=== PATIENT | male | born 1940 | race Caucasian/White ===

== ENCOUNTER 2017-05-06 19:48 | Emergency (ER) | payer OTHER, MEDICARE ==
[2017-05-06 21:13] LABS: CHLORIDE,CL 103 mmol/L (98-107); SODIUM,NA 141 mmol/L (136-145)
--- NOTE | 2017-05-06 22:47 | EDM.PDOC ---
ED HPI GENERAL MEDICAL PROBLEM - General Chief Complaint: Chest Pain Stated Complaint: palpitations, ? fast heart rate Time Seen by Provider: 05/06/17 20:09 Source of Information: Reports: Patient History Limitations: Reports: No Limitations - History of Present Illness INITIAL COMMENTS - FREE TEXT/NARRATIVE: Presents to ER with complaints of palpitations. Denies any chest pain. Pt. states that he is recovering from an URI. Pt. states that he has a history of palpitation and CAD. He underwent a 4 vessel CABG in 2013. He states that today, he felt his pulse because he thought it felt fast, but thought if felt to be approx. 40 BPM. Pt. states that the symptoms resolved before arriving to ER, and states that he has issues with peripheral neuropathy, so he has issues feeling pulses. He presented to ER for a pulse check, but was encouraged to be seen in ER for EKG and lab. Onset: Today Location: Reports: Chest Quality: Reports: Other (palpitations) - Related Data Allergies Allergy/AdvReac Type Severity Reaction Status Date / Time No Known Allergies Allergy Verified 05/06/17 20:25 Home Meds: Home Meds Finasteride 5 mg PO DAILY 05/06/17 [History] Insulin Aspart [NovoLOG] 10 units SQ TID 05/06/17 [History] Insulin Glarg,Human.Rec.Analog [LantUS Solostar] 48 units SQ BEDTIME 05/06/17 [ History] Lisinopril 40 mg PO DAILY 05/06/17 [History] Omeprazole Magnesium [Prilosec Otc] 20 mg PO DAILY 05/06/17 [History] Simvastatin [Zocor] 20 mg PO BEDTIME 05/06/17 [History] Tamsulosin HCl 0.4 mg PO DAILY 05/06/17 [History] amLODIPine [Norvasc] 5 mg PO DAILY 05/06/17 [History] Past Medical History Cardiovascular History: Reports: Bypass, CAD, High Cholesterol, Hypertension Gastrointestinal History: Reports: GERD Genitourinary History: Reports: Prostate Disorder Endocrine/Metabolic History: Reports: Diabetes, Type I - Past Surgical History Cardiovascular Surgical History: Reports: Coronary Artery Bypass ED ROS GENERAL - Review of Systems Review Of Systems: See Below Constitutional: Reports: No Symptoms HEENT: Reports: No Symptoms Respiratory: Reports: No Symptoms Cardiovascular: Reports: Palpitations. Denies: Chest Pain, Claudication, Dyspnea on Exertion, Edema, Lightheadedness, Orthopnea, PND Endocrine: Reports: No Symptoms GI/Abdominal: Reports: No Symptoms : Reports: No Symptoms Musculoskeletal: Reports: No Symptoms Skin: Reports: No Symptoms Neurological: Reports: No Symptoms Psychiatric: Reports: No Symptoms Hematologic/Lymphatic: Reports: No Symptoms Immunologic: Reports: No Symptoms ED EXAM, GENERAL - Physical Exam Exam: See Below Exam Limited By: No Limitations General Appearance: Alert, WD/WN, No Apparent Distress Throat/Mouth: Normal Inspection, Normal Lips, Normal Teeth, Normal Gums, Normal Oropharynx, Normal Voice, No Airway Compromise Head: Atraumatic, Normocephalic Neck: Lymphadenopathy (L), Lymphadenopathy (R) Respiratory/Chest: No Respiratory Distress, Lungs Clear, Normal Breath Sounds, No Accessory Muscle Use, Chest Non-Tender Cardiovascular: Normal Peripheral Pulses, Regular Rate, Rhythm, No Edema, No Gallop, No JVD, No Murmur, No Rub GI/Abdominal: Normal Bowel Sounds, Soft, Non-Tender, No Organomegaly, No Distention, No Abnormal Bruit, No Mass (Male) Exam: Deferred Rectal (Males) Exam: Deferred Back Exam: Normal Inspection, Full Range of Motion, NT Extremities: Normal Inspection, Normal Range of Motion, Non-Tender, Normal Capillary Refill, No Pedal Edema Neurological: Alert, Oriented, CN II-XII Intact, Normal Cognition, Normal Gait, Normal Reflexes, No Motor/Sensory Deficits Psychiatric: Normal Affect, Normal Mood Skin Exam: Warm, Dry, Intact, Normal Color, No Rash Lymphatic: Adenopathy (lyphadenopathy to cervical and inguinal lymph nodes, 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.) Course - Vital Signs Last Recorded V/S: Last Vital Signs Temp 36.3 C 05/06/17 19:48 Pulse 71 05/06/17 19:48 Resp 14 05/06/17 21:04 BP 137/75 05/06/17 21:04 Pulse Ox 95 05/06/17 21:04 - Orders/Labs/Meds Orders: Active Orders 24 hr Category Date Time Status EKG Documentation Completion [RC] STAT Care 05/06/17 20:05 Ordered Labs: Laboratory Tests 05/06/17 05/06/17 05/06/17 Range/Units 20:43 20:43 20:43 WBC 17.0 H (4.0-10.0) x10^3/uL RBC 4.48 L (4.5-6.0) x10^6/uL Hgb 13.3 L (14.0-18.0) g/dL Hct 40.1 (40.0-52.0) % MCV 89.5 (78.0-93.0) fL MCH 29.7 (26.0-32.0) pg MCHC 33.2 (32.0-36.0) g/dL RDW Coeff of Max 13.1 (10.0-15.0) % Plt Count 209 (130-400) x10^3/uL Add Manual Diff Yes Neutrophils % (Manual) 17 L (50-80) % Lymphocytes % (Manual) 8 L (25-50) % Atypical Lymphs % 67 H (0) % Monocytes % (Manual) 7 (2-11) % Eosinophils % (Manual) 1 (0-4) % Platelet Estimate Adequate PT 9.9 (9.8-11.8) SEC INR 0.9 L (2.0-3.5) Sodium 141 (136-145) mmol/L Potassium 4.4 (3.5-5.1) mmol/L Chloride 103 (98-107) mmol/L Carbon Dioxide 30 (21-32) mmol/L BUN 12 (7-18) mg/dL Creatinine 0.8 (0.70-1.30) mg/dL Est Cr Clr Drug Dosing 76.10 mL/min Estimated GFR (MDRD) > 60 Glucose 157 H (74-106) mg/dL Calcium 8.8 (8.5-10.1) mg/dL Corrected Calcium 9.36 (8.5-10.1) mg/dL Total Bilirubin 0.3 (0.2-1.0) mg/dL AST 15 (15-37) U/L ALT 18 (16-63) U/L Alkaline Phosphatase 122 H (46-116) U/L Troponin I < 0.017 (<=0.056) ng/mL Total Protein 6.5 (6.4-8.2) g/dL Albumin 3.3 L (3.4-5.0) g/dL Globulin 3.2 Albumin/Globulin Ratio 1.03 Departure - Departure Time of Disposition: 21:15 Disposition: Home, Self-Care 01 Condition: Good Clinical Impression: Palpitations Referrals: Ashley Sales PA-C [Primary Care Provider] - Forms: ED Department Discharge Additional Instructions: Return to ER if you have any palpitations, chest pain, or shortness of breath. Follow-up in clinic for recheck of labs in 2 weeks. - My Orders Last 24 Hours: My Active Orders 05/06/17 20:05 EKG Documentation Completion [RC] STAT - Assessment/Plan Last 24 Hours: My Active Orders 05/06/17 20:05 EKG Documentation Completion [RC] STAT
== END 2017-05-06 21:36 | disposition home or self-care (01) ==
LOC: VM.ED 19:48
DX: R00.2 Palpitations (principal); E78.00 Pure hypercholesterolemia, unspecified; I10 Essential (primary) hypertension; E10.9 Type 1 diabetes mellitus without complications; Z79.4 Long term (current) use of insulin; Z79.899 Other long term (current) drug therapy
CPT/HCPCS: 36415; 80053; 84484; 85025; 85610; 93005; 99284-GF; 99285

== ENCOUNTER 2017-07-28 18:07 | Emergency (ER) | payer OTHER, MEDICARE ==
[2017-07-28] MEDS ORDERED: Sodium Chloride 0.9% 10 ML Syringe FLUSH PRN (18:42)
[2017-07-28] MEDS ORDERED: Adenosine 6 MG/2 ML SDV IVPUSH ONE (18:43)
[2017-07-28] MEDS ORDERED: Lactated Ringers 1,000 ML IV SCH (18:45)
--- NOTE | 2017-07-28 19:18 | EDM.PDOC ---
<Andres Mccray W - Last Filed: 07/28/17 19:09> ED HPI GENERAL MEDICAL PROBLEM - General Chief Complaint: Cardiovascular Problem Stated Complaint: palpitations/tachycardia Time Seen by Provider: 07/28/17 18:20 Source of Information: Reports: Patient History Limitations: Reports: No Limitations - History of Present Illness INITIAL COMMENTS - FREE TEXT/NARRATIVE: Pt. presents to ER with complaints of a 4 hour history of racing heart. Pt. states that this started at approx. 14:30 this afternoon. Pt. came to the ER on 07/04 with palpitations but was in a sinus rhythm on arrival. Pt. was set up for a Holter study which me is finished with. He had some episodes of palpitations during the holter study but [facility]. Pt. states that he is somewhat lightheaded but denies any chest pain. He states that he has been taking his heart rate with his blood pressure machine, and his heart rate has been between 155-175. Pt. has a history of CABG and has not had any issues with tachycardia since right after the surgery. He states that these issues with palpitations have only been happening over the past several months. Onset: Today Onset Date: 07/28/17 Onset Time: 14:30 Duration: Constant, Intermittent (intermittent initially) Associated Symptoms: Denies: Confusion, Chest Pain, Nausea/Vomiting, Shortness of Breath, Syncope, Weakness - Related Data Allergies Allergy/AdvReac Type Severity Reaction Status Date / Time No Known Allergies Allergy Verified 07/28/17 19:02 Home Meds: Home Meds Finasteride 5 mg PO DAILY 05/06/17 [History] Insulin Aspart [NovoLOG] 10 units SQ TID 05/06/17 [History] Insulin Glarg,Human.Rec.Analog [LantUS Solostar] 48 units SQ BEDTIME 05/06/17 [ History] Lisinopril 40 mg PO DAILY 05/06/17 [History] Omeprazole Magnesium [Prilosec Otc] 20 mg PO DAILY 05/06/17 [History] Simvastatin [Zocor] 20 mg PO BEDTIME 05/06/17 [History] Tamsulosin HCl 0.4 mg PO DAILY 05/06/17 [History] amLODIPine [Norvasc] 5 mg PO DAILY 05/06/17 [History] Metoprolol Tartrate [Lopressor] 12.5 mg PO Q12HR 7 Days #14 tab 07/28/17 [Rx] Past Medical History Cardiovascular History: Reports: Bypass, CAD, High Cholesterol, Hypertension Gastrointestinal History: Reports: GERD Genitourinary History: Reports: Prostate Disorder Endocrine/Metabolic History: Reports: Diabetes, Type I - Past Surgical History Cardiovascular Surgical History: Reports: Coronary Artery Bypass Social & Family History - Tobacco Use Smoking Status *Q: Unknown Ever Smoked ED ROS GENERAL - Review of Systems Review Of Systems: See Below Constitutional: Reports: No Symptoms. Denies: Fever, Chills, Malaise, Weakness , Fatigue, Diaphoresis HEENT: Reports: No Symptoms Respiratory: Reports: No Symptoms. Denies: Shortness of Breath Cardiovascular: Reports: Lightheadedness, Palpitations. Denies: Chest Pain, Orthopnea, PND, Syncope Endocrine: Reports: No Symptoms GI/Abdominal: Reports: No Symptoms. Denies: Abdominal Pain, Bloody Stool, Diarrhea, Difficulty Swallowing, Hematemesis, Hematochezia, Nausea, Vomiting : Reports: No Symptoms Musculoskeletal: Reports: No Symptoms Skin: Reports: No Symptoms Neurological: Reports: No Symptoms Psychiatric: Reports: No Symptoms Hematologic/Lymphatic: Reports: No Symptoms Immunologic: Reports: No Symptoms ED EXAM, GENERAL - Physical Exam Exam: See Below Exam Limited By: No Limitations General Appearance: Alert, WD/WN, No Apparent Distress Eye Exam: Bilateral Eye: EOMI, Normal Fundi, Normal Inspection, PERRL Nose: Normal Inspection, Normal Mucosa, No Blood Throat/Mouth: Normal Inspection, Normal Lips, Normal Teeth, Normal Gums, Normal Oropharynx, Normal Voice, No Airway Compromise Head: Atraumatic, Normocephalic Neck: Normal Inspection, Supple, Non-Tender, Full Range of Motion Respiratory/Chest: No Respiratory Distress, Lungs Clear, Normal Breath Sounds, No Accessory Muscle Use, Chest Non-Tender Cardiovascular: Normal Peripheral Pulses, No Edema, No Murmur, No Rub, Tachycardia, Other (regular rhythm) Peripheral Pulses: 3+: Radial (L), Radial (R) GI/Abdominal: Soft, Non-Tender, No Organomegaly, No Distention, No Mass (Male) Exam: Deferred Rectal (Males) Exam: Deferred Extremities: Normal Inspection, Normal Range of Motion, Non-Tender, No Pedal Edema, Normal Capillary Refill Neurological: Alert, Oriented, CN II-XII Intact, Normal Cognition, Normal Gait, Normal Reflexes, No Motor/Sensory Deficits Psychiatric: Normal Affect, Normal Mood Skin Exam: Warm, Dry, Intact, Normal Color, No Rash EKG INTERPRETATION EKG Date: 07/28/17 Time: 18:19 Rhythm: Other (SVT) EKG Interpretation Comments: Initial rhythm SVT at 160-180. After administration of adenosine 6mg IV, pt. converted to a sinus rhythm at 75. Course - Vital Signs Last Recorded V/S: Last Vital Signs Temp 35.6 C 07/28/17 18:10 Pulse 175 H 07/28/17 18:10 Resp 18 07/28/17 18:10 BP 148/99 H 07/28/17 18:10 Pulse Ox 97 07/28/17 18:10 - Orders/Labs/Meds Orders: Active Orders 24 hr Category Date Time Status EKG Documentation Completion [RC] STAT Care 07/28/17 18:42 Active EKG Documentation Completion [RC] STAT Care 07/28/17 19:28 Active Chest 1V Frontal [CR] Stat Exams 07/28/17 19:08 Taken LACTIC ACID [CHEM] Stat Lab 07/28/17 19:23 Received Lactated Ringers [Ringers, Lactated] 1,000 ml Med 07/28/17 18:45 Active IV ASDIRECTED Sodium Chloride 0.9% [Saline Flush] Med 07/28/17 18:42 Active 10 ml FLUSH ASDIRECTED PRN Peripheral IV Insertion Adult [OM.PC] Routine Oth 07/28/17 18:43 Ordered Medication Orders Lactated Ringer's (Ringers, Lactated) 1,000 mls @ 500 mls/hr IV ASDIRECTED [facility] Last Admin: 07/28/17 19:09 Dose: 500 mls/hr Sodium Chloride (Saline Flush) 10 ml FLUSH ASDIRECTED PRN PRN Reason: Keep Vein Open Labs: Laboratory Tests 07/28/17 07/28/17 07/28/17 Range/Units 19:23 19:23 19:23 WBC 19.1 H (4.0-10.0) x10^3/uL RBC 4.61 (4.5-6.0) x10^6/uL Hgb 14.1 (14.0-18.0) g/dL Hct 42.3 (40.0-52.0) % MCV 91.8 (78.0-93.0) fL MCH 30.6 (26.0-32.0) pg MCHC 33.3 (32.0-36.0) g/dL RDW Coeff of Max 14.8 (10.0-15.0) % Plt Count 232 (130-400) x10^3/uL Add Manual Diff Yes Neutrophils % (Manual) 17 L (50-80) % Lymphocytes % (Manual) 70 H (25-50) % Monocytes % (Manual) 11 (2-11) % Eosinophils % (Manual) 2 (0-4) % Platelet Estimate Adequate PT 10.2 (9.8-11.8) SEC INR 0.9 L (2.0-3.5) Sodium 140 (136-145) mmol/L Potassium 4.3 (3.5-5.1) mmol/L Chloride 104 (98-107) mmol/L Carbon Dioxide 27 (21-32) mmol/L BUN 16 (7-18) mg/dL Creatinine 0.8 (0.70-1.30) mg/dL Est Cr Clr Drug Dosing TNP Estimated GFR (MDRD) > 60 Glucose 137 H (74-106) mg/dL Calcium 9.1 (8.5-10.1) mg/dL Corrected Calcium 9.50 (8.5-10.1) mg/dL Phosphorus 3.5 (2.6-4.7) mg/dL Magnesium 2.0 (1.8-2.4) mg/dL Total Bilirubin 0.3 (0.2-1.0) mg/dL AST 15 (15-37) U/L ALT 18 (16-63) U/L Alkaline Phosphatase 107 (46-116) U/L Troponin I < 0.017 (<=0.056) ng/mL C-Reactive Protein < 0.2 (<=0.9) mg/dL NT-Pro-B Natriuret Pep 230 (<=450) pg/mL Total Protein 7.6 (6.4-8.2) g/dL Albumin 3.5 (3.4-5.0) g/dL Globulin 4.1 Albumin/Globulin Ratio 0.85 TSH, Ultra Sensitive 2.021 (0.358-3.74) uIU/mL Meds: Medications Generic Name Dose Route Start Last Admin Trade Name Freq PRN Reason Stop Dose Admin Lactated Ringer's 1,000 mls @ 500 mls/hr 07/28/17 18:45 07/28/17 19:09 Ringers, Lactated IV 500 mls/hr ASDIRECTED HOLLY Administration Sodium Chloride 10 ml 07/28/17 18:42 Saline Flush FLUSH ASDIRECTED PRN Keep Vein Open Discontinued Medications Generic Name Dose Route Start Last Admin Trade Name Freq PRN Reason Stop Dose Admin Adenosine 6 mg 07/28/17 18:43 07/28/17 18:50 Adenocard IVPUSH 07/28/17 18:44 6 mg NOW ONE Administration Departure - Departure Disposition: Home, Self-Care 01 Clinical Impression: SVT (supraventricular tachycardia) - Discharge Information Prescriptions: Metoprolol Tartrate [Lopressor] 12.5 mg PO Q12HR 7 Days #14 tab Instructions: Supraventricular Tachycardia, Adult Referrals: Ashley Sales PA-C [Primary Care Provider] - Forms: ED Department Discharge Additional Instructions: 1. Stay well hydrated and rest 2. Take new heart pill twice a day 3. Report to your Primary Care Provider at your next appointment 4. Call us with any questions - My Orders Last 24 Hours: My Active Orders 07/28/17 19:23 LACTIC ACID [CHEM] Stat - Assessment/Plan Last 24 Hours: My Active Orders 07/28/17 19:23 LACTIC ACID [CHEM] Stat <Calin Claros - Last Filed: 07/28/17 20:10> Departure - Departure Time of Disposition: 20:07 Condition: Good - Problem List Review Problem List Initiated/Reviewed/Updated: Yes - Assessment/Plan Assessment:: SVT Plan: No cardiology available to contact at the [facility]. Therefore, will start patient on a low dose B-perry until he can get seen by his PCP August 11, 2017. Patient agrees with POC and wishes to proceed.
[2017-07-28 20:03] LABS: CHLORIDE,CL 104 mmol/L (98-107); SODIUM,NA 140 mmol/L (136-145)
[2017-07-28] MEDS ORDERED: Metoprolol Tartrate 25 MG Tab PO ONE (20:08)
[2017-07-28 22:01] VITALS: BP 155/91
== END 2017-07-28 20:26 | disposition home or self-care (01) ==
LOC: VM.ED 18:07
DX: I47.1 Supraventricular tachycardia (principal); E78.00 Pure hypercholesterolemia, unspecified; I10 Essential (primary) hypertension; E10.9 Type 1 diabetes mellitus without complications; I25.10 Atherosclerotic heart disease of native coronary artery without angina pectoris; Z79.899 Other long term (current) drug therapy
CPT/HCPCS: 36415; 71045; 80053; 83605; 83735; 83880; 84100; 84443; 84484; 85025; 85610; 86140; 93005; 93010; 96361; 96374; 99284-GF; 99285; A9270-GY; J0153; J7120

== ENCOUNTER 2017-07-28 22:49 | Observation (INO) | payer OTHER, MEDICARE ==
[2017-07-28] MEDS ORDERED: Sodium Chloride 0.9% 10 ML Syringe FLUSH PRN (23:01)
[2017-07-28] MEDS ORDERED: Ondansetron 4 MG Tab.DIS PO PRN (23:01)
[2017-07-28] MEDS ORDERED: Acetaminophen 325 MG Tab PO PRN (23:01)
[2017-07-28] MEDS ORDERED: Lactated Ringers 1,000 ML IV SCH (23:15)
[2017-07-28] MEDS ORDERED: Diltiazem 100 MG in Sodium Chloride 0.9% 100 ML IV SCH (23:45)
--- NOTE | 2017-07-28 23:52 | PCM.HP ---
H&P History of Present Illness - General Date of Service: 07/28/17 Admit Problem/Dx: Admission Diagnosis/Problem Admission Diagnosis/Problem Supraventricular tachycardia Source of Information: Patient, Old Records, RN, RN Notes Reviewed History Limitations: Reports: No Limitations - History of Present Illness Initial Comments - Free Text/Narative: Patient presents to the hospital as a direct admission for SVT following an earlier ER visit at this facility. Patient was seen earlier in the ED for SVT. He was given adenosine and converted to NSR with a rate in the 90's. Patient was given one dose of Metoprolol 12.5 mg in the ED and discharge home with a prescription. This patient is seen by [facility] [place]. [facility] and recommendation was made to follow up with his PCP. Patient called the ED at [facility] around 10pm this evening stating his HR was in the 170's. Another call was placed to the [facility] and recommended patient be admitted here for stabilization before being sent to the [facility]. Patient apparently had this same issue April 2017. He was to have a Holter monitor placed and rechecked by the [facility]. It is unclear is this ever happened. Patient denies any chest pain or SOB. No abdominal pain. Patient denies any N/V/ D. Overall, he states he feels good. No focal neurological complaints. Onset of Symptoms: Reports: Unknown/Unsure - Related Data Allergies/Adverse Reactions: Allergies Allergy/AdvReac Type Severity Reaction Status Date / Time No Known Allergies Allergy Verified 07/28/17 19:02 Home Medications: Home Meds Finasteride 5 mg PO DAILY 05/06/17 [History] Insulin Aspart [NovoLOG] 10 units SQ TID 05/06/17 [History] Insulin Glarg,Human.Rec.Analog [LantUS Solostar] 48 units SQ BEDTIME 05/06/17 [ History] Lisinopril 40 mg PO DAILY 05/06/17 [History] Omeprazole Magnesium [Prilosec Otc] 20 mg PO DAILY 05/06/17 [History] Simvastatin [Zocor] 20 mg PO BEDTIME 05/06/17 [History] Tamsulosin HCl 0.4 mg PO DAILY 05/06/17 [History] amLODIPine [Norvasc] 5 mg PO DAILY 05/06/17 [History] Metoprolol Tartrate [Lopressor] 12.5 mg PO Q12HR 7 Days #14 tab 07/28/17 [Rx] Past Medical History Cardiovascular History: Reports: Bypass, CAD, High Cholesterol, Hypertension Gastrointestinal History: Reports: GERD Genitourinary History: Reports: Prostate Disorder Endocrine/Metabolic History: Reports: Diabetes, Type I - Past Surgical History Cardiovascular Surgical History: Reports: Coronary Artery Bypass Social & Family History - Tobacco Use Smoking Status *Q: Unknown Ever Smoked H&P Review of Systems - Review of Systems: Review Of Systems: See Below General: Denies: Fever, Chills, Weakness Pulmonary: Denies: Shortness of Breath, Cough Cardiovascular: Reports: Palpitations. Denies: Chest Pain, Lightheadedness Gastrointestinal: Denies: Abdominal Pain, Nausea, Vomiting Skin: Reports: No Symptoms Neurological: Reports: No Symptoms. Denies: Dizziness, Headache Exam - Exam Exam: See Below - Exam General: Alert, Oriented, Cooperative Lungs: Clear to Auscultation, Normal Respiratory Effort Cardiovascular: Regular Rhythm, Normal S1, Normal S2, Tachycardia GI/Abdominal Exam: Normal Bowel Sounds, Soft, Non-Tender Extremities: Normal Inspection Peripheral Pulses: 2+: Radial (L), Radial (R) Skin: Warm, Dry, Intact Neuro Extensive - Mental Status: Alert, Oriented x3 EKG INTERPRETATION EKG Date: 07/28/17 Time: 23:50 Rhythm: Other Rate (Beats/Min): 160 [place]: Normal P-Wave: Present QRS: Normal ST-T: Depressed QT: Normal ME/PQ Interval: 0.78 Comparison: NA - No Prior EKG EKG Interpretation Comments: 1. Sinus Tachycardia with short ME interval 2. Septal [place], probably old 3. ST deviation and moderate T-wave abnormality, consider inferior ischemia *Q Meaningful Use (ADM) - VTE *Q VTE Mechanical Contraindications *Q: At Risk for Falls - Problem List (1) SVT (supraventricular tachycardia) SNOMED Code(s): 0905200 ICD Code: I47.1 - SUPRAVENTRICULAR TACHYCARDIA Status: Acute Priority: High Current Visit: Yes Onset Date: ~07/28/17 (2) CLL (chronic lymphocytic leukemia) SNOMED Code(s): 03623437 ICD Code: C91.90 - LYMPHOID LEUKEMIA, UNSPECIFIED NOT HAVING ACHIEVED REMISSION Status: Chronic Priority: Low Current Visit: No (3) S/P CABG x 4 SNOMED Code(s): 015656545, 704856832 ICD Code: Z95.1 - PRESENCE OF AORTOCORONARY BYPASS GRAFT Status: Chronic Priority: Low Current Visit: No (4) Diabetes SNOMED Code(s): 66367478 ICD Code: E11.9 - TYPE 2 DIABETES MELLITUS WITHOUT COMPLICATIONS Status: Acute Current Visit: Yes Qualifiers: Diabetes mellitus type: type 1 Diabetes mellitus complication status: without complication Qualified Code(s): E10.9 - Type 1 diabetes mellitus without complications (5) Essential hypertension SNOMED Code(s): 85516239 ICD Code: I10 - ESSENTIAL (PRIMARY) HYPERTENSION Status: Chronic Priority : Low Current Visit: No Problem List Initiated/Reviewed/Updated: Yes Orders Last 24hrs: Active Orders 24 hr Category Date Time Status Patient Status [ADT] Routine ADT 07/28/17 23:01 Active Ambulate [RC] ASDIRECTED Care 07/28/17 23:01 Active Cardiac Monitoring [RC] 06,10,14,18,22,02 Care 07/28/17 23:01 Active EKG 12 Lead [EKG Documentation Completion] [RC] STAT Care 07/28/17 23:06 Active Height and Weight [RC] UPON Care 07/28/17 23:01 Active Intake and Output [RC] QSHIFT Care 07/28/17 23:01 Active May Shower [RC] ASDIRECTED Care 07/28/17 23:01 Active Oxygen Therapy [RC] .PRN Care 07/28/17 23:01 Active VTE/DVT Education [RC] .PRN Care 07/28/17 23:01 Active Vital Signs [RC] 06,10,14,18,22,02 Care 07/28/17 23:01 Active Consult to Case Management [CONS] Routine Cons 07/28/17 23:01 Active [employer] [place] Diet [DIET] Diet 07/28/17 Breakfast Active BASIC METABOLIC PANEL,BMP [CHEM] Routine Lab 07/29/17 05:11 Ordered CBC WITH AUTO DIFF [HEME] Routine Lab 07/29/17 05:11 Ordered MAGNESIUM [CHEM] Routine Lab 07/29/17 05:11 Ordered Acetaminophen [Tylenol] Med 07/28/17 23:01 Active 650 mg PO Q4H PRN Finasteride [Proscar] Med 07/29/17 08:00 Ordered 5 mg PO DAILY Insulin Aspart [NovoLOG] Med 07/29/17 08:00 Ordered 10 unit SUBCUT TID Insulin Glarg,Human.Rec.Analog Med 07/29/17 20:00 Ordered 48 units SQ BEDTIME Lactated Ringers [Ringers, Lactated] 1,000 ml Med 07/28/17 23:15 Active IV ASDIRECTED Lisinopril [Lisinopril] Med 07/29/17 08:00 Ordered 40 mg PO DAILY Omeprazole Magnesium [Prilosec Otc] Med 07/29/17 08:00 Ordered 20 mg PO DAILY Ondansetron [Zofran ODT] Med 07/28/17 23:01 Active 4 mg PO Q6H PRN Simvastatin [Zocor] Med 07/29/17 20:00 Ordered 20 mg PO BEDTIME Sodium Chloride 0.9% [Saline Flush] Med 07/28/17 23:01 Active 10 ml FLUSH ASDIRECTED PRN Tamsulosin [Flomax] Med 07/29/17 08:00 Ordered 0.4 mg PO DAILY amLODIPine [Norvasc] Med 07/29/17 08:00 Ordered 5 mg PO DAILY Antiembolic Hose [OM.PC] Per Unit Routine Oth 07/28/17 23:02 Ordered Peripheral IV Insertion Adult [OM.PC] Routine Oth 07/28/17 23:01 Ordered Resuscitation Status Routine Resus Stat 07/28/17 23:01 Ordered Medication Orders Acetaminophen (Tylenol) 650 mg PO Q4H PRN PRN Reason: Pain (Mild 1-3)/fever Amlodipine Besylate (Norvasc) 5 mg PO DAILY HOLLY Finasteride (Proscar) 5 mg PO DAILY HOLLY Lactated Ringer's (Ringers, Lactated) 1,000 mls @ 75 mls/hr IV ASDIRECTED HOLLY Insulin Aspart (Novolog) 10 unit SUBCUT TID HOLLY Non-Formulary Medication (Insulin Glarg,Human.Rec.Analog) 48 units SQ BEDTIME HOLLY Non-Formulary Medication (Lisinopril [Lisinopril]) 40 mg PO DAILY HOLLY Non-Formulary Medication (Omeprazole Magnesium [Prilosec Otc]) 20 mg PO DAILY HOLLY Ondansetron HCl (Zofran Odt) 4 mg PO Q6H PRN PRN Reason: nausea, able to take PO Simvastatin (Zocor) 20 mg PO BEDTIME HOLLY Sodium Chloride (Saline Flush) 10 ml FLUSH ASDIRECTED PRN PRN Reason: Keep Vein Open Tamsulosin HCl (Flomax) 0.4 mg PO DAILY HOLLY Assessment/Plan Comment:: 77 yo male patient with a past medical history of DM Type I, HTN, CLL, and 4 vessel CABG is admitted to the observation unit at [facility] for a diagnosis of SVT. Case was discussed with Dr. Sun, [facility]. Recommended the patient be admitted and stabilized here before any transfer, if needed. Patient will be given one bolus of 20 mg Cardizem and started on a Cardizem drip and titrate per protocol. Will continue home medications the same. Will eventually transition patient to PO CCB or BB once rhythm is stable. Accucheks TID with meals. Recheck blood work in AM. Patient wishes to be a full code. Patient will be transferred to the [facility] in [place] once stabilized, should the need arise. DVT prophylaxis with Lovenox and early ambulation. I anticipate patient will be admitted <48 hrs if rhythm in controlled on Cardizem drip and transitioned over to PO.
[2017-07-28] MEDS ORDERED: Diltiazem 25 MG/5 ML SDV IVPUSH ONE (23:56)
[2017-07-29 07:23] LABS: CHLORIDE,CL 106 mmol/L (98-107); SODIUM,NA 139 mmol/L (136-145)
[2017-07-29] MEDS: Insulin Aspart 100 Units/ML 3 ML Pen SUBCUT SCH ×2 (07:40→11:36)
[2017-07-29] MEDS ORDERED: Lisinopril 20 MG Tab PO SCH (08:00)
[2017-07-29] MEDS ORDERED: Omeprazole 20 MG Cap.CR PO SCH (08:00)
[2017-07-29] MEDS ORDERED: Finasteride 5 MG Tab PO SCH (08:00)
[2017-07-29] MEDS ORDERED: amLODIPine 5 MG Tab PO SCH (08:00)
[2017-07-29] MEDS ORDERED: Tamsulosin 0.4 MG Cap.ER PO SCH (08:00)
[2017-07-29] MEDS ORDERED: Diltiazem 180 MG Cap.CD PO ONE (10:13)
--- NOTE | 2017-07-29 10:18 | PCM.DCSUM1 ---
Discharge Summary - Hospital Course HPI Initial Comments: Patient presented to the hospital as a direct admission last night for SVT following an earlier ER visit at this facility yesterday. Patient was seen earlier in the ED for SVT. He was given adenosine and converted to NSR with a rate in the 90's. Patient was given one dose of Metoprolol 12.5 mg in the ED and discharge home with a prescription. This patient [facility] [place] to follow up with his PCP. Patient called the ED at [facility] around 10pm last night stating his HR was in the 170's. Another call was placed to the [facility] and recommended patient be admitted here for stabilization [facility]. Patient apparently had this same issue April 2017. He was to have a Holter monitor placed and rechecked by the [facility]. It is unclear is this ever happened. Patient denies any chest pain or SOB. No abdominal pain. Patient denies any N/V/ D. Overall, he states he feels good. No focal neurological complaints. Case was discussed with Dr. Sun, [facility] [place]. - Discharge Data Discharge Date: 07/29/17 Discharge Disposition: Home, Self-Care 01 Condition: Good - Discharge Diagnosis/Problem(s) (1) SVT (supraventricular tachycardia) SNOMED Code(s): 1757081 ICD Code: I47.1 - SUPRAVENTRICULAR TACHYCARDIA Status: Acute Priority: High Current Visit: Yes Onset Date: ~07/28/17 (2) CLL (chronic lymphocytic leukemia) SNOMED Code(s): 14399359 ICD Code: C91.90 - LYMPHOID LEUKEMIA, UNSPECIFIED NOT HAVING ACHIEVED REMISSION Status: Chronic Priority: Low Current Visit: No (3) S/P CABG x 4 SNOMED Code(s): 066999773, 446703060 ICD Code: Z95.1 - PRESENCE OF AORTOCORONARY BYPASS GRAFT Status: Chronic Priority: Low Current Visit: No (4) Diabetes SNOMED Code(s): 25144002 ICD Code: E11.9 - TYPE 2 DIABETES MELLITUS WITHOUT COMPLICATIONS Status: Acute Current Visit: Yes Qualifiers: Diabetes mellitus type: type 1 Diabetes mellitus complication status: without complication Qualified Code(s): E10.9 - Type 1 diabetes mellitus without complications (5) Essential hypertension SNOMED Code(s): 42450821 ICD Code: I10 - ESSENTIAL (PRIMARY) HYPERTENSION Status: Chronic Priority : Low Current Visit: No - Patient Summary/Data Operative Procedure(s) Performed: None Consults: Consultations 07/28/17 23:01 Consult to Case Management [CONS] Routine Labs Pending at D/C: None Recommended Follow-up Testing/Procedures: EKG with labs at next PCP appointment Planned Operative Procedure(s) after DC: None Hospital Course: Patient remained stable while admitted. No fevers. Blood pressure remained stable. Patient tolerated Cardiazem drip without any issues. Patient remained pain free. No chest Pain. No SOB. No orthostatics. - Patient Instructions Diet: Diabetic Diet Activity: No Strenuous Activities, Rest and Relax Today Driving: May Drive Today Showering/Bathing: May Shower Notify Provider of: Fever, Increased Pain, Nausea and/or Vomiting Other/Special Instructions: Increased heart rate or chest pain - Discharge Plan Prescriptions/Med Rec: Diltiazem HCl [Diltiazem 24Hr Cd] 1 cap PO DAILY 30 Days #30 cap.er.24h Home Medications: Home Meds Finasteride 5 mg PO DAILY 05/06/17 [History] Insulin Aspart [NovoLOG] 10 units SQ TID 05/06/17 [History] Insulin Glarg,Human.Rec.Analog [LantUS Solostar] 48 units SQ BEDTIME 05/06/17 [ History] Lisinopril 40 mg PO DAILY 05/06/17 [History] Omeprazole Magnesium [Prilosec Otc] 20 mg PO DAILY 05/06/17 [History] Simvastatin [Zocor] 20 mg PO BEDTIME 05/06/17 [History] Tamsulosin HCl 0.4 mg PO DAILY 05/06/17 [History] amLODIPine [Norvasc] 5 mg PO DAILY 05/06/17 [History] Acetaminophen/Diphenhydramine [Tylenol Pm Ex-Strength Caplet] 1 each PO BEDTIME PRN 07/29/17 [History] Diltiazem HCl [Diltiazem 24Hr Cd] 1 cap PO DAILY 30 Days #30 cap.er.24h [Rx] Patient Handouts: Supraventricular Tachycardia, Adult Referrals: Ashley Sales PA-C [Primary Care Provider] - (Follow up in one week at the [facility]) - Discharge Summary/Plan Comment DC Time >30 min.: No Discharge Summary/Plan Comment: Patient will be discharge home today as he is doing well and tolerated the Cardiazem. He will be started on 180 mg PO Cardiazem CD daily. Patient needs a follow up appointment with PCP in the next week for a hospital discharge recheck and to see how he is doing on his new medication. - General Info Date of Service: 07/29/17 Admission Dx/Problem (Free Text: Admission Diagnosis/Problem Admission Diagnosis/Problem Supraventricular tachycardia Subjective Update: Patient offers no specific complaints this morning. He states he is feeling good. No chest pain or palpitations over night. No SOB. No issues with BM's or urination. Tolerating diet ok. Functional Status: Reports: Pain Controlled, Tolerating Diet, Ambulating, Urinating Numeric/FACES Score: 0 - Review of Systems General: Denies: Fever, Weakness Pulmonary: Denies: Shortness of Breath, Sputum Cardiovascular: Denies: Chest Pain, Palpitations Gastrointestinal: Denies: Abdominal Pain, Nausea, Vomiting Skin: Reports: No Symptoms Neurological: Reports: No Symptoms. Denies: Dizziness, Headache - Patient Data Vitals - Most Recent: Last Vital Signs Temp 36.3 C 07/29/17 09:19 Pulse 72 07/29/17 09:26 Resp 16 07/29/17 09:19 BP 128/73 07/29/17 09:26 Pulse Ox 96 07/29/17 09:19 Weight - Most Recent: 78.471 kg I&O - Last 24 hours: Intake & Output 07/28/17 07/29/17 07/29/17 22:59 06:59 14:59 Intake Total 433 200 Output Total 200 200 Balance 233 0 Lab Results - Last 24 hrs: Laboratory Results - last 24 hr 07/29/17 07/29/17 07/29/17 Range/Units 00:41 06:32 06:57 WBC 18.1 H (4.0-10.0) x10^3/uL RBC 4.30 L (4.5-6.0) x10^6/uL Hgb 13.1 L (14.0-18.0) g/dL Hct 40.1 (40.0-52.0) % MCV 93.3 H (78.0-93.0) fL MCH 30.5 (26.0-32.0) pg MCHC 32.7 (32.0-36.0) g/dL RDW Coeff of Max 14.7 (10.0-15.0) % Plt Count 235 (130-400) x10^3/uL Add Manual Diff Yes Neutrophils % (Manual) 17 L (50-80) % Band Neutrophils % 4 (0-6) % Lymphocytes % (Manual) 75 H (25-50) % Monocytes % (Manual) 1 L (2-11) % Eosinophils % (Manual) 1 (0-4) % Metamyelocytes % 2 H (0) % Platelet Estimate Adequate Sodium (136-145) mmol/L Potassium (3.5-5.1) mmol/L Chloride (98-107) mmol/L Carbon Dioxide (21-32) mmol/L BUN (7-18) mg/dL Creatinine (0.70-1.30) mg/dL Est Cr Clr Drug Dosing mL/min Estimated GFR (MDRD) Glucose (74-106) mg/dL POC Glucose 128 H 148 H (74-106) mg/dL Calcium (8.5-10.1) mg/dL Magnesium (1.8-2.4) mg/dL 07/29/17 Range/Units 06:57 WBC (4.0-10.0) x10^3/uL RBC (4.5-6.0) x10^6/uL Hgb (14.0-18.0) g/dL Hct (40.0-52.0) % MCV (78.0-93.0) fL MCH (26.0-32.0) pg MCHC (32.0-36.0) g/dL RDW Coeff of Max (10.0-15.0) % Plt Count (130-400) x10^3/uL Add Manual Diff Neutrophils % (Manual) (50-80) % Band Neutrophils % (0-6) % Lymphocytes % (Manual) (25-50) % Monocytes % (Manual) (2-11) % Eosinophils % (Manual) (0-4) % Metamyelocytes % (0) % Platelet Estimate Sodium 139 (136-145) mmol/L Potassium 4.4 (3.5-5.1) mmol/L Chloride 106 (98-107) mmol/L Carbon Dioxide 24 (21-32) mmol/L BUN 18 (7-18) mg/dL Creatinine 0.8 (0.70-1.30) mg/dL Est Cr Clr Drug Dosing 76.10 mL/min Estimated GFR (MDRD) > 60 Glucose 190 H (74-106) mg/dL POC Glucose (74-106) mg/dL Calcium 8.5 (8.5-10.1) mg/dL Magnesium 1.9 (1.8-2.4) mg/dL Med Orders - Current: Current Medications Acetaminophen (Tylenol) 650 mg PO Q4H PRN PRN Reason: Pain (Mild 1-3)/fever Last Admin: 07/29/17 01:42 Dose: 650 mg Amlodipine Besylate (Norvasc) 5 mg PO DAILY [facility] Last Admin: 07/29/17 07:40 Dose: 5 mg Diltiazem HCl (Cardizem Cd) 180 mg PO ONETIME ONE Stop: 07/29/17 10:14 Finasteride (Proscar) 5 mg PO DAILY [facility] Last Admin: 07/29/17 07:39 Dose: 5 mg Lactated Ringer's (Ringers, Lactated) 1,000 mls @ 75 mls/hr IV ASDIRECTED [facility] Last Admin: 07/29/17 01:21 Dose: 75 mls/hr Insulin Aspart (Novolog) 10 unit SUBCUT TID [facility] Last Admin: 07/29/17 07:40 Dose: 10 units Insulin Detemir (Levemir) 24 unit SUBCUT BID [facility] Lisinopril (Prinivil) 40 mg PO DAILY [facility] Last Admin: 07/29/17 07:39 Dose: 40 mg Omeprazole (Omeprazole) 20 mg PO DAILY [facility] Last Admin: 07/29/17 07:39 Dose: 20 mg Ondansetron HCl (Zofran Odt) 4 mg PO Q6H PRN PRN Reason: nausea, able to take PO Simvastatin (Zocor) 20 mg PO BEDTIME [facility] Sodium Chloride (Saline Flush) 10 ml FLUSH ASDIRECTED PRN PRN Reason: Keep Vein Open Tamsulosin HCl (Flomax) 0.4 mg PO DAILY [facility] Last Admin: 07/29/17 07:39 Dose: 0.4 mg Discontinued Medications Diltiazem HCl (Diltiazem) 20 mg IVPUSH ONETIME ONE Stop: 07/28/17 23:57 Last Admin: 07/29/17 00:12 Dose: 20 mg Diltiazem HCl 100 mg/ Sodium (Chloride) 100 mls @ 5 mls/hr IV TITRATE [facility]; Protocol Last Admin: 07/29/17 01:23 Dose: 5 mg/hr, 5 mls/hr - Exam General: Reports: Alert, Oriented, Cooperative, No Acute Distress Lungs: Reports: Clear to Auscultation, Normal Respiratory Effort Cardiovascular: Reports: Regular Rate, Regular Rhythm GI/Abdominal Exam: Normal Bowel Sounds, Soft, Non-Tender Skin: Reports: Warm, Dry, Intact Neurological: Reports: No New Focal Deficit *Q Meaningful Use (DIS) - VTE *Q VTE Mechanical Contraindications *Q: At Risk for Falls
[2017-07-29 12:29] VITALS: BP 134/72
[2017-07-29] MEDS ORDERED: Simvastatin 20 MG Tab PO SCH (20:00)
[2017-07-30] MEDS ORDERED: Insulin Detemir 100 Units/ML 3 ML Pen SUBCUT SCH (08:00)
== END 2017-07-29 12:43 | disposition home or self-care (01) ==
LOC: VM.MS 22:50 → UNDOADMOB 22:50 → VM.MS 23:45 → UNDODISOB 07-29 12:43
PROVIDERS: ADMIT Nurse Practitioner Family; ATTEND Nurse Practitioner Family
DX: I47.1 Supraventricular tachycardia (principal); C91.90 Lymphoid leukemia, unspecified not having achieved remission; E10.9 Type 1 diabetes mellitus without complications; I10 Essential (primary) hypertension; I25.10 Atherosclerotic heart disease of native coronary artery without angina pectoris; E78.00 Pure hypercholesterolemia, unspecified; K21.9 Gastro-esophageal reflux disease without esophagitis; N42.9 Disorder of prostate, unspecified; Z95.1 Presence of aortocoronary bypass graft; Z79.899 Other long term (current) drug therapy; Z79.4 Long term (current) use of insulin
CPT/HCPCS: 36415; 80048; 82962; 83735; 85025; 93005; 94760; 96365; 96366; 96376; A9270-GY; G0378; J1815-GY; J3490; J7050; J7120

== ENCOUNTER 2017-07-30 23:40 | Emergency (ER) | payer OTHER, MEDICARE ==
[2017-07-30] MEDS ORDERED: Sodium Chloride 0.9% 10 ML Syringe FLUSH PRN (23:42)
[2017-07-30] MEDS ORDERED: Adenosine 6 MG/2 ML SDV IVPUSH ONE (23:43)
[2017-07-30] MEDS ORDERED: Lactated Ringers 1,000 ML IV SCH (23:45)
[2017-07-31] MEDS ORDERED: Diltiazem IR 60 MG Tab PO ONE (00:07)
[2017-07-31 00:47] LABS: CHLORIDE,CL 101 mmol/L (98-107); SODIUM,NA 135 mmol/L (136-145)
--- NOTE | 2017-07-31 06:20 | EDM.PDOC ---
ED HPI GENERAL MEDICAL PROBLEM - General Chief Complaint: Cardiovascular Problem Stated Complaint: tachycardia Time Seen by Provider: 07/30/17 23:40 Source of Information: Reports: Patient History Limitations: Reports: No Limitations - History of Present Illness INITIAL COMMENTS - FREE TEXT/NARRATIVE: Pt. presents to ER with complaints of tachycardia. Pt. presented to ER 3 days ago twice with SVT. Pt. was treated with adenosine and converted to NSR. Pt. was started on oral cardiazem (180mg ER every 24 hours). Pt. has been tolerating the medication without problems, but had a low blood sugar today. He consumed some sugar and his blood sugar increased. Pt. noticed some palpitations after this event. Pt. states that he is not experiencing any chest pain or shortness of breath. No weakness. Onset Date: 07/30/17 - Related Data Allergies Allergy/AdvReac Type Severity Reaction Status Date / Time No Known Allergies Allergy Verified 07/31/17 00:03 Home Meds: Home Meds Finasteride 5 mg PO DAILY 05/06/17 [History] Insulin Aspart [NovoLOG] 10 units SQ TID 05/06/17 [History] Insulin Glarg,Human.Rec.Analog [LantUS Solostar] 48 units SQ BEDTIME 05/06/17 [ History] Lisinopril 40 mg PO DAILY 05/06/17 [History] Omeprazole Magnesium [Prilosec Otc] 20 mg PO DAILY 05/06/17 [History] Simvastatin [Zocor] 20 mg PO BEDTIME 05/06/17 [History] Tamsulosin HCl 0.4 mg PO DAILY 05/06/17 [History] amLODIPine [Norvasc] 5 mg PO DAILY 05/06/17 [History] Acetaminophen/Diphenhydramine [Tylenol Pm Ex-Strength Caplet] 1 each PO BEDTIME PRN 07/29/17 [History] Diltiazem HCl [Diltiazem 24Hr Cd] 1 cap PO DAILY 30 Days #30 cap.er.24h [Rx] Past Medical History HEENT History: Reports: Cataract, Impaired Vision Cardiovascular History: Reports: Bypass, CAD, High Cholesterol, Hypertension Respiratory History: Reports: None Gastrointestinal History: Reports: GERD Genitourinary History: Reports: Prostate Disorder Musculoskeletal History: Reports: Arthritis Psychiatric History: Reports: None Endocrine/Metabolic History: Reports: Diabetes, Type I Hematologic History: Reports: None Oncologic (Cancer) History: Reports: Lymphoma Dermatologic History: Reports: None - Past Surgical History HEENT Surgical History: Reports: Eye Surgery Cardiovascular Surgical History: Reports: Coronary Artery Bypass Social & Family History - Tobacco Use Smoking Status *Q: Unknown Ever Smoked Used Tobacco, but Quit: Yes Month/Year Tobacco Last Used: 1965 Second Hand Smoke Exposure: No - Caffeine Use Caffeine Use: Reports: Coffee, Soda - Recreational Drug Use Recreational Drug Use: No ED ROS GENERAL - Review of Systems Review Of Systems: See Below Constitutional: Reports: No Symptoms HEENT: Reports: No Symptoms Respiratory: Reports: No Symptoms Cardiovascular: Reports: Palpitations Endocrine: Reports: No Symptoms GI/Abdominal: Reports: No Symptoms : Reports: No Symptoms Musculoskeletal: Reports: No Symptoms Skin: Reports: No Symptoms Neurological: Reports: No Symptoms Psychiatric: Reports: No Symptoms Hematologic/Lymphatic: Reports: No Symptoms Immunologic: Reports: No Symptoms ED EXAM, GENERAL - Physical Exam Exam: See Below Exam Limited By: No Limitations General Appearance: Alert, WD/WN, No Apparent Distress Ears: Normal External Exam, Normal Canal, Hearing Grossly Normal, Normal TMs Nose: Normal Inspection, Normal Mucosa, No Blood Throat/Mouth: Normal Inspection, Normal Lips, Normal Teeth, Normal Gums, Normal Oropharynx, Normal Voice, No Airway Compromise Head: Atraumatic, Normocephalic Neck: Normal Inspection, Supple, Non-Tender, Full Range of Motion Respiratory/Chest: No Respiratory Distress, Lungs Clear, Normal Breath Sounds, No Accessory Muscle Use, Chest Non-Tender Cardiovascular: Normal Peripheral Pulses, Regular Rate, Rhythm, No Edema, No Gallop, No JVD, No Murmur, No Rub GI/Abdominal: Normal Bowel Sounds, Soft, Non-Tender, No Organomegaly, No Distention, No Abnormal Bruit, No Mass (Male) Exam: Deferred Rectal (Males) Exam: Deferred Back Exam: Normal Inspection, Full Range of Motion, NT Extremities: Normal Inspection, Normal Range of Motion, Non-Tender, Normal Capillary Refill, No Pedal Edema Neurological: Alert, Oriented, CN II-XII Intact, Normal Cognition, Normal Gait, Normal Reflexes, No Motor/Sensory Deficits Psychiatric: Normal Affect, Normal Mood Skin Exam: Warm, Dry, Intact, Normal Color, No Rash Lymphatic: No Adenopathy EKG INTERPRETATION EKG Date: 07/30/17 Rhythm: NSR [place]: Normal P-Wave: Present QRS: Normal ST-T: Normal QT: Normal Course - Vital Signs Last Recorded V/S: Last Vital Signs Temp 36.7 C 07/30/17 23:45 Pulse 89 07/31/17 01:00 Resp 15 07/31/17 01:00 BP 151/79 H 07/31/17 01:00 Pulse Ox 96 07/31/17 01:00 - Orders/Labs/Meds Orders: Active Orders 24 hr Category Date Time Status EKG Documentation Completion [RC] STAT Care 07/30/17 23:42 Active Peripheral IV Insertion Adult [OM.PC] Routine Oth 07/30/17 23:42 Ordered Labs: Laboratory Tests 07/31/17 07/31/17 07/31/17 Range/Units 00:08 00:08 00:08 WBC 16.7 H (4.0-10.0) x10^3/uL RBC 4.43 L (4.5-6.0) x10^6/uL Hgb 13.5 L (14.0-18.0) g/dL Hct 40.5 (40.0-52.0) % MCV 91.4 (78.0-93.0) fL MCH 30.5 (26.0-32.0) pg MCHC 33.3 (32.0-36.0) g/dL RDW Coeff of Max 14.5 (10.0-15.0) % Plt Count 221 (130-400) x10^3/uL Neut % (Auto) 25.9 L (50.0-80.0) % Lymph % (Auto) 68.6 H (25.0-50.0) % [place] % (Auto) 4.8 (2.0-11.0) % Eos % (Auto) 0.5 (0.0-4.0) % Baso % (Auto) 0.2 (0.2-1.2) % PT 10.6 (9.8-11.8) SEC INR 1.0 L (2.0-3.5) Sodium 135 L (136-145) mmol/L Potassium 4.4 (3.5-5.1) mmol/L Chloride 101 (98-107) mmol/L Carbon Dioxide 28 (21-32) mmol/L Anion Gap 10.4 BUN 19 H (7-18) mg/dL Creatinine 1.0 (0.70-1.30) mg/dL Est Cr Clr Drug Dosing TNP Estimated GFR (MDRD) > 60 Glucose 266 H (74-106) mg/dL Calcium 9.0 (8.5-10.1) mg/dL Corrected Calcium 9.32 (8.5-10.1) mg/dL Phosphorus 3.8 (2.6-4.7) mg/dL Magnesium 2.0 (1.8-2.4) mg/dL Total Bilirubin 0.6 (0.2-1.0) mg/dL AST 13 L (15-37) U/L ALT 15 L (16-63) U/L Alkaline Phosphatase 108 (46-116) U/L Troponin I < 0.017 (<=0.056) ng/mL C-Reactive Protein 0.6 (<=0.9) mg/dL Total Protein 7.5 (6.4-8.2) g/dL Albumin 3.6 (3.4-5.0) g/dL Globulin 3.9 Albumin/Globulin Ratio 0.92 TSH, Ultra Sensitive 3.081 (0.358-3.74) uIU/mL Meds: Medications Discontinued Medications Generic Name Dose Route Start Last Admin Trade Name Freq PRN Reason Stop Dose Admin Adenosine 6 mg 07/30/17 23:43 Adenocard IVPUSH 07/30/17 23:44 NOW ONE Diltiazem HCl 60 mg 07/31/17 00:07 07/31/17 00:23 Cardizem PO 07/31/17 00:08 60 mg ONETIME ONE Administration Lactated Ringer's 1,000 mls @ 500 mls/hr 07/30/17 23:45 07/30/17 23:56 Ringers, Lactated IV 500 mls/hr ASDIRECTED [facility] Administration Sodium Chloride 10 ml 07/30/17 23:42 Saline Flush FLUSH ASDIRECTED PRN Keep Vein Open Departure - Departure Time of Disposition: 01:13 Disposition: Home, Self-Care 01 Clinical Impression: Paroxysmal supraventricular tachycardia Instructions: Diltiazem extended-release capsules or tablets, Supraventricular Tachycardia, Adult, [id number] Referrals: PCP,Unobtain [Ordering Only Provider] - Forms: ED Department Discharge Additional Instructions: In addition to the 180mg diltiazem ER, take the 60mg diltiazem ER as well. Follow-up with your PCP like you have planned. Return to ER if you have recurrence of your racing heart. - Problem List Review Problem List Initiated/Reviewed/Updated: Yes - My Orders Last 24 Hours: My Active Orders 07/30/17 23:42 EKG Documentation Completion [RC] STAT Peripheral IV Insertion Adult [OM.PC] Routine - Assessment/Plan Last 24 Hours: My Active Orders 07/30/17 23:42 EKG Documentation Completion [RC] STAT Peripheral IV Insertion Adult [OM.PC] Routine Assessment:: SVT Plan: Pt. converted to sinus rhythm at 80-90 prior to receiving any medication.
== END 2017-07-31 01:13 | disposition home or self-care (01) ==
LOC: VM.ED 23:40
DX: I47.1 Supraventricular tachycardia (principal); E78.00 Pure hypercholesterolemia, unspecified; I10 Essential (primary) hypertension; E10.9 Type 1 diabetes mellitus without complications; Z79.899 Other long term (current) drug therapy; Z87.891 Personal history of nicotine dependence
CPT/HCPCS: 36415; 80053; 83735; 84100; 84443; 84484; 85025; 85610; 86140; 93005; 96360; 99285; A9270; J7120